=== PATIENT | male | born 1940 ===

== ENCOUNTER 2024-03-25 10:48 | Outpatient (CLI) | payer MEDICARE, SELFPAY ==
--- NOTE | ~2024-03-25 | XR_ITS ---
Clinical Indication: Dyspnea PA and lateral views of the chest: Comparison: 10/11/2004 Findings: Right-sided Mediport in place. The lungs are clear, without evidence of focal consolidation or pleural effusion. Status post aortic valve replacement. Probable calcified subcarinal lymph node. Bones and soft tissues are unremarkable. Impression: Clear lungs. Right-sided Mediport and aortic valve replacement. Probable calcified subcarinal lymph node. Reviewed, dictated and finalized at location . MATOLOGIST Impression: Clear lungs. Right-sided Mediport and aortic valve replacement. Probable calcified subcarinal lymph node.
== END 2024-03-25 10:49 | disposition home or self-care (01) ==
PROVIDERS: PCP Physician Assistant; Visit Provider Physician Assistant
DX: R06.09 Other forms of dyspnea (principal); Z95.2 Presence of prosthetic heart valve
CPT/HCPCS: 71046